=== PATIENT | male | born 1960 | race Caucasian/White ===

== ENCOUNTER → 2020-06-26 | Outpatient (CLI) | payer MEDICAID, OTHER ==
--- NOTE | 2020-06-26 12:29 | Diagnostic Imaging Report ---
INDICATION: Neck pain. TIME OF EXAM: 10:43 AM FINDINGS: 3 views of the cervical spine were obtained. Curvature and alignment is normal. There are significant degenerative disc disease C6-C7 level with disc space narrowing and marginal spurring. Odontoid is intact. No fractures are seen. Prevertebral tissues are normal. IMPRESSION: C6-C7 degenerative disc disease. No other significant abnormality is detected. Dictated by: Dictated on workstation # [id number]
== END ==
LOC: RAD FS 10:37
PROVIDERS: ATTEND Nurse Practitioner Family
DX: M50.323 Other cervical disc degeneration at C6-C7 level (principal)
CPT/HCPCS: 72040

== ENCOUNTER 2021-10-25 14:26 | Emergency (ER) | payer OTHER ==
[~2021-10-25] VITALS: Ht 167.7 cm; Wt 72.6 kg
[2021-10-25 14:30] VITALS: BP 140/69
[2021-10-25] MEDS ORDERED: TETANUS,DIPTH,PERTUSS P/F (BOOSTRIX) 0.5 ML VIAL IM ONE (14:45)
--- NOTE | 2021-10-25 14:51 | ED Fall/Injury ---
General Chief Complaint: Trauma-Non Activation Stated Complaint: FALL Nursing Triage Note: PT ARRIVED BY PRIVATE VEHICLE FROM [facility] WITH CHIEF COMPLAINT OF 10 FT FALL. 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 PT WAS ALERT, ORIENTED X 4 AND AMBULATORY. ONSET WAS THURSDAY AFTERNOON. PT LANDED ON CONCRETE AND STATED HIS LEFT SIDE, HIP, BELOW HEAD/NECK HURTS, TIALBONE, AND LEFT SHOULDER HURT. PT'S VITALS WERE DONE AND REPORT WAS GIVEN TO PROVIDER. Source: patient, family Exam Limitations: no limitations History of Present Illness Date Seen by Provider: Oct 25, 2021 Time Seen by Provider: 14:28 Initial Comments 61 yo male presenting with complaint of falling 10 feet from scaffolding to concrete on Monday 10/23. He denies losing consciousness. He has pain primari ly to the left side of his body. He has pain to cervical spine, left scapula, left chest, Thoracic spine, lumbar spine, left hip, tingling/burning pain in right foot since the fall. He refused to go be seen until today. He has no shortness of breath, nausea, vomiting, abdominal pain, blood in urine or stool, difficulty urinating or defecating. He has abrasions to right castaneda and thigh from the fall as well. His last tetanus booster was more than 5 years ago. He had a muscle relaxer Thursday night and took 2 tylenol last night but nothing today for pain. Occurred: other (Monday 10/23) Severity: moderate Injuries/Pain Location: head, neck, upper extremity (left shoulder), chest, back (T and L spine), pelvis (left hip pain), lower extremity (left hip pain, radicular pain/neuropathic pain right foot) Context: slipped Loss of Consciousness: no loss of consciousness Modifying Factors: Worse With Movement Associated Symptoms (Fall): No Abdominal Pain, No Chest Pain, No Confusion, No Dizziness, No Headache, No Lightheadedness, No Muscle Spasms, No Nausea/Vomiting; Neck Pain; No Ringing in Ears, No Seizures, No Shortness of Air, No Slurred Speech; Trouble Walking; No Vision Changes Allergies and Home Medications Allergies Coded Allergies: No Known Drug Allergies (Unverified , 10/25/21) Patient Home Medication List Home Medication List Reviewed: Yes Review of Systems Review of Systems Constitutional: No chills, No dizziness, No fever Eyes: Denies Blindness, Denies Blurred Vision, Denies Drainage, Denies Decreased Acuity, Denies Pain, Denies Photophobia, Denies Vision Changes Ears, Nose, Mouth, Throat: denies ear pain, denies ear discharge, denies nose pain, denies nose discharge, denies epistaxis, denies mouth pain Respiratory: No cough, No dyspnea on exertion, No short of breath, No stridor, No wheezing Cardiovascular: No chest pain Gastrointestinal: No nausea, No vomiting Genitourinary: No dysuria, No hematuria Musculoskeletal: see HPI Skin: No rash Psychiatric/Neurological: See HPI; Denies Headache Past Pwnrjjs-Fbgtrg-Omnmnk Hx Patient Social History Tobacco Use?: No Smoking Status: Never a Smoker Substance use?: No Alcohol Use?: No Pt feels they are or have been: No Physical Exam Vital Signs Vital Signs - First Documented 10/25/21 14:30 Temp 36.6 Pulse 65 Resp 16 B/P (MAP) 140/69 (92) Pulse Ox 97 O2 Delivery Room Air Capillary Refill : Less Than 3 Seconds Height, Weight, BMI Height: '" Weight: lbs. oz. kg; 25.00 BMI Method: General Appearance: WD/WN, no apparent distress HEENT: PERRL/EOMI, normal ENT inspection, TMs normal, pharynx normal Neck: full range of motion, supple, tender midline (middle of cervical spine tender to palpation) Cardiovascular: normal peripheral pulses, regular rate, rhythm Respiratory: chest non-tender, lungs clear, normal breath sounds, no respiratory distress, no accessory muscle use Gastrointestinal: normal bowel sounds, non tender, soft, no pulsatile mass Rectal: deferred Back: no CVA tenderness, vertebral tenderness (lower thoracic spine and lumbar spine) Extremities: normal range of motion, non-tender, no calf tenderness, normal capillary refill 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, no motor/sensory deficits, alert, normal mood/affect, oriented x 3 Skin: warm/dry, other (superficial abrasions to right castaneda and thigh) [place] Coma Score Best Eye Response: (4) Open Spontaneously Best Verbal Response: (5) Oriented Best Motor Response: (6) Obeys Commands Giuliana Total: 15 Progress/Results/Core Measures Results/Orders My Orders Orders - ANNA BOSE MD Ct Head/Cervical Spine Wo (10/25/21 14:42) Ct Chest/Abdomen/Pelvis Wo (10/25/21 14:42) Dipht,Pertuss(Acell),Tet Adult (Boostrix (10/25/21 14:45) Vital Signs/I&O 10/25/21 14:30 Temp 36.6 Pulse 65 Resp 16 B/P (MAP) 140/69 (92) Pulse Ox 97 O2 Delivery Room Air Blood Pressure Mean: 92 Progress Progress Note #1: Progress Note Obtain CT scan of head, cervical spine, chest/abdomen/pelvis and T and L spine. Update dTaP. pt refused pain medicine. Progress Note #2: Progress Note Although pt initially agreed to tetanus update when nurse went to administer it he refused. CT head and cervical spine show no intracranical process or cervical spine fracture but has findings for right maxillary sinus fracture. Progress Note #3: Progress Note CT scan of the chest, abdomen, pelvis did not show any acute fracture or malalignment. He does have some diverticulosis present. He had results reviewed with him and his significant other. He states he has had prior injury to the right cheek years ago but does not have any pain or tenderness there now. The findings they saw on the CT may be residual from his old injury rather than anything acute from this fall. Counseled on follow-up and return precautions. Advised if he continues to burning sensation and tingling in his right foot an MRI may be needed to look for a pinched nerve or nerve injury since the CT scan was not showing any acute fracture or spinal cord issue. In the meantime he can take ibuprofen to help with pain and inflammation. Ice for inflammation. Establish care with primary clinic for follow-up and continued concerns Diagnostic Imaging Diagonstic Imaging: CT Plain Films/CT/US/NM/MRI: c-spine, head Comments NAME: DANIELNEFTALY Jose L MED REC#: [id number] PT STATUS: REG ER : 1960 PHYSICIAN: ANNA BOSE MD ADMIT DATE: 10/25/21/ER FS Draft Date of Exam:10/25/21 CT HEAD/CERVICAL SPINE WO PROCEDURE: CT head and CT cervical spine without contrast. TECHNIQUE: Multiple contiguous axial images were obtained through the brain and cervical spine without the use of intravenous contrast. Sagittal and coronal reformations through the cervical spine were then performed. Auto Exposure Controls were utilized during the CT exam to meet ALARA standards for radiation dose reduction. INDICATION: Trauma, fall. COMPARISON: No prior studies are available for comparison. CT HEAD: FINDINGS: Ventricles and sulci are within normal limits. No sulcal effacement or midline shift is identified. No acute intra-axial or extra-axial hemorrhage is detected. Cisterns are patent. Visualized paranasal sinuses demonstrate some mucosal thickening of the right maxillary sinus. There is some cortical interruption in the anterior wall of the right maxillary sinus. Fracture cannot be entirely excluded. IMPRESSION: 1. No acute intracranial process is detected. 2. Findings suspicious for right anterior maxillary sinus wall fracture with some associated fluid or mucosal thickening in the right maxillary sinus. No other significant abnormality is seen. CT CERVICAL SPINE: FINDINGS: There is straightening of the normal cervical lordotic curvature. There is minimal anterolisthesis of C3 on C4. There is multilevel degenerative disc disease with variable disc space narrowing and marginal spurring. This is greatest at the C6-C7 level. There is multilevel facet arthropathy. Prevertebral tissues are normal. No fractures are seen. Odontoid appears intact. IMPRESSION: Cervical spondylosis. No acute bony abnormality is detected. Dictated on workstation # [id number] Dict: 10/25/21 1503 Trans: 10/25/21 1512 [id number] Interpreted by: MANN SANDOVAL MD Electronically signed by: Reviewed: Reviewed by Wy Diagonstic Imaging: CT Plain Films/CT/US/NM/MRI: chest, abdomen, pelvis Comments [facility] [place] [place] NAME: NEFTALY SANCHEZ [facility] REC#: [id number] PT STATUS: REG ER : 1960 PHYSICIAN: ANNA BOSE MD ADMIT DATE: 10/25/21/ER FS Signed Date of Exam:10/25/21 CT CHEST/ABDOMEN/PELVIS WO PROCEDURE: CT chest, abdomen, and pelvis without contrast. TECHNIQUE: Multiple contiguous axial images were obtained through the chest, abdomen, and pelvis without the use of intravenous contrast. Auto Exposure Controls were utilized during the CT exam to meet ALARA standards for radiation dose reduction. INDICATION: Trauma, fall from scaffolding 10' high. Patient has pain on the left side. FINDINGS: CT CHEST: No definite mediastinal hematoma is identified. No pericardial or pleural fluid is detected. No pulmonary contusions or evidence of pneumothorax is identified. No acute bony abnormalities detected. IMPRESSION: Unremarkable noncontrast CT of the chest. CT ABDOMEN AND PELVIS: Evaluation of the solid abdominal viscera is somewhat limited without intravenous contrast. No definite perihepatic or perisplenic free fluid is seen. No definite hemoperitoneum is identified. Gallbladder is unremarkable. The pancreas, adrenal glands and kidneys are unremarkable. Aorta is nonaneurysmal. No retroperitoneal hemorrhage is detected. Bowel loops are normal in caliber. There is diverticulosis of the descending and sigmoid colon but no evidence of acute diverticulitis. The bladder is unremarkable. There appears to be a urachal remnant present. Bony structures appear nonacute. IMPRESSION: 1. No evidence of abdominal or pelvic visceral injury. 2. Uncomplicated diverticulosis. Dictated by: Dictated on workstation # [id number] Dict: 10/25/21 1551 Trans: 10/25/21 1605 AS6 [id number] Interpreted by: MANN SANDOVAL MD Electronically signed by: MANN SANDOVAL MD 10/25/21 1605 Reviewed: Reviewed by Me Departure Impression Primary Impression: Contusion of left hip, initial encounter Additional Impressions: Lumbar back pain with radiculopathy affecting right lower extremity Maxillary fracture, right side, initial encounter for closed fracture Fall on and from scaffolding, initial encounter Cervical spine pain Disposition: HOME, SELF-CARE Condition: Stable Departure-Patient Inst. Decision time for Depature: 16:37 Referrals: NO,LOCAL PHYSICIAN (PCP) Primary Care Physician [facility] [phone] call to get established with a primary care provider and follow up for continued concerns/issues Patient Instructions: Neck Pain ED, Low Back Pain ED, Facial Fracture (DC), Radiculopathy Add. Discharge Instructions: There are no fractures seen in your spine or hips. If you have continued burning pain and numbness in the right foot then you should follow up with clinic as you may need MRI to look for pinched nerve or nerve injury. If your right cheek is giving you pain or swelling/bruising then you could follow up with clinic and may need to see ear, nose, and throat specialist if it worsens. Use Ibuprofen 600 mg every 8 hours as needed for pain and inflammation. All discharge instructions reviewed with patient and/or family. Voiced understanding. ANNA BOSE MD Oct 25, 2021 14:51
--- NOTE | 2021-10-25 15:12 | Diagnostic Imaging Report ---
PROCEDURE: CT head and CT cervical spine without contrast. TECHNIQUE: Multiple contiguous axial images were obtained through the brain and cervical spine without the use of intravenous contrast. Sagittal and coronal reformations through the cervical spine were then performed. Auto Exposure Controls were utilized during the CT exam to meet ALARA standards for radiation dose reduction. INDICATION: Trauma, fall. COMPARISON: No prior studies are available for comparison. CT HEAD: FINDINGS: Ventricles and sulci are within normal limits. No sulcal effacement or midline shift is identified. No acute intra-axial or extra-axial hemorrhage is detected. Cisterns are patent. Visualized paranasal sinuses demonstrate some mucosal thickening of the right maxillary sinus. There is some cortical interruption in the anterior wall of the right maxillary sinus. Fracture cannot be entirely excluded. IMPRESSION: 1. No acute intracranial process is detected. 2. Findings suspicious for right anterior maxillary sinus wall fracture with some associated fluid or mucosal thickening in the right maxillary sinus. No other significant abnormality is seen. CT CERVICAL SPINE: FINDINGS: There is straightening of the normal cervical lordotic curvature. There is minimal anterolisthesis of C3 on C4. There is multilevel degenerative disc disease with variable disc space narrowing and marginal spurring. This is greatest at the C6-C7 level. There is multilevel facet arthropathy. Prevertebral tissues are normal. No fractures are seen. Odontoid appears intact. IMPRESSION: Cervical spondylosis. No acute bony abnormality is detected. Dictated by: Dictated on workstation # [id number]
--- NOTE | 2021-10-25 16:04 | Diagnostic Imaging Report ---
PROCEDURE: CT chest, abdomen, and pelvis without contrast. TECHNIQUE: Multiple contiguous axial images were obtained through the chest, abdomen, and pelvis without the use of intravenous contrast. Auto Exposure Controls were utilized during the CT exam to meet ALARA standards for radiation dose reduction. INDICATION: Trauma, fall from scaffolding 10' high. Patient has pain on the left side. FINDINGS: CT CHEST: No definite mediastinal hematoma is identified. No pericardial or pleural fluid is detected. No pulmonary contusions or evidence of pneumothorax is identified. No acute bony abnormalities detected. IMPRESSION: Unremarkable noncontrast CT of the chest. CT ABDOMEN AND PELVIS: Evaluation of the solid abdominal viscera is somewhat limited without intravenous contrast. No definite perihepatic or perisplenic free fluid is seen. No definite hemoperitoneum is identified. Gallbladder is unremarkable. The pancreas, adrenal glands and kidneys are unremarkable. Aorta is nonaneurysmal. No retroperitoneal hemorrhage is detected. Bowel loops are normal in caliber. There is diverticulosis of the descending and sigmoid colon but no evidence of acute diverticulitis. The bladder is unremarkable. There appears to be a urachal remnant present. Bony structures appear nonacute. IMPRESSION: 1. No evidence of abdominal or pelvic visceral injury. 2. Uncomplicated diverticulosis. Dictated by: Dictated on workstation # [id number]
== END 2021-10-25 16:43 | disposition home or self-care (01) ==
LOC: EDUNIT# 14:26 → ER FS 14:28
DX: S02.40CA Maxillary fracture, right side, initial encounter for closed fracture (principal); S70.02XA Contusion of left hip, initial encounter; S80.811A Abrasion, right lower leg, initial encounter; S70.311A Abrasion, right thigh, initial encounter; M54.16 Radiculopathy, lumbar region; M54.2 Cervicalgia; W12.XXXA Fall on and from scaffolding, initial encounter
CPT/HCPCS: 70450; 71250; 72125; 74176

== ENCOUNTER 2022-04-01 08:55 | Emergency (ER) | payer OTHER ==
[~2022-04-01] VITALS: Ht 167.7 cm; Wt 72.6 kg
[2022-04-01 09:13] VITALS: BP 133/79
[2022-04-01] MEDS ORDERED: NS IV 1000 ML 1,000 ML IV STA (10:36)
--- NOTE | 2022-04-01 10:46 | ED Abdominal Pain ---
General Chief Complaint: Abdominal/GI Problems Stated Complaint: ABDOMINAL PAIN Nursing Triage Note: Pt presents with LLQ abdominal pain that started when he was moving heaving items in his garage. He reports feeling something "pop loose" Denies any other injury Source of Information: Patient Exam Limitations: No Limitations History of Present Illness Date Seen by Provider: Apr 01, 2022 Time Seen by Provider: 10:35 Initial Comments Patient here with complaint of left lower quadrant abdominal pain since Thursday that occurred after he was pushing a 400 pound compressor. States he felt a tearing and pop to the left lower quadrant. Denies dysuria or problems with bowel movements. Denies nausea vomiting or other pain or problems. Timing/Duration: 2-3 Days Severity/Quality: Moderate, Sharp, Other (Tearing) Location: LLQ Radiation: No Radiation Activities at Onset: Other (Moving equipment) Modifying Factors: Worsens With Movement, Worsens With Palpation; Improves With Resting Associated Symptoms: No Back Pain, No Chest Pain, No Fever/Chills, No Nausea/Vomiting, No Shortness of Air, No Weakness Allergies and Home Medications Allergies Coded Allergies: No Known Drug Allergies (Unverified , 10/25/21) Patient Home Medication List Home Medication List Reviewed: Yes Review of Systems Review of Systems Constitutional: No chills, No fever Respiratory: No Symptoms Reported Gastrointestinal: See HPI, Abdominal Pain; Denies Nausea, Denies Vomiting Genitourinary: No Symptoms Reported, See HPI Musculoskeletal: No back pain; muscle pain, muscle cramps Skin: No change in color; rash (Right groin) All Other Systems Reviewed Negative Unless Noted: Yes Past Jkvdwxg-Tkucoo-Gvbnwa Hx Patient Social History Tobacco Use?: No Substance use?: No Alcohol Use?: No Past Medical History Surgeries: No Cardiac: No Neurological: No Genitourinary: No Family Medical History Reviewed and Corrections made No Pertinent Family Hx Physical Exam Vital Signs Vital Signs - First Documented 04/01/22 09:13 Temp 35.7 Pulse 61 Resp 16 B/P (MAP) 133/79 (97) Capillary Refill : Less Than 3 Seconds Height/Weight/BMI Height: '" Weight: lbs. oz. kg; 25.00 BMI Method: General Appearance: WD/WN, mild distress (Left lower quadrant pain) Respiratory: lungs clear, normal breath sounds Cardiovascular: regular rate, rhythm, no murmur Gastrointestinal: normal bowel sounds, soft; No guarding, No rebound; tenderness (Left lower quadrant) Extremities: normal range of motion, no pedal edema Back: no CVA tenderness, no vertebral tenderness Neurologic/Psychiatric: alert, oriented x 3 Skin: warm/dry, rash (Fungal rash to the right groin) Progress/Results/Core Measures Results/Orders Lab Results Laboratory Tests Test 04/01/22 10:50 Range/Units White Blood Count 7.7 4.3-11.0 10^3/uL Red Blood Count 5.00 4.30-5.52 10^6/uL Hemoglobin 15.3 13.3-17.7 g/dL Hematocrit 46 40-54 % Mean Corpuscular Volume 91 80-99 fL Mean Corpuscular Hemoglobin 31 25-34 pg Mean Corpuscular Hemoglobin Concent 34 32-36 g/dL Red Cell Distribution Width 13.8 10.0-14.5 % Platelet Count 202 130-400 10^3/uL Mean Platelet Volume 9.7 9.0-12.2 fL Immature Granulocyte % (Auto) 0 % Neutrophils (%) (Auto) 72 42-75 % Lymphocytes (%) (Auto) 11 L 12-44 % Monocytes (%) (Auto) 6 0-12 % Eosinophils (%) (Auto) 10 0-10 % Basophils (%) (Auto) 1 0-10 % Neutrophils # (Auto) 5.6 1.8-7.8 10^3/uL Lymphocytes # (Auto) 0.8 L 1.0-4.0 10^3/uL Monocytes # (Auto) 0.5 0.0-1.0 10^3/uL Eosinophils # (Auto) 0.8 H 0.0-0.3 10^3/uL Basophils # (Auto) 0.1 0.0-0.1 10^3/uL Immature Granulocyte # (Auto) 0.0 0.0-0.1 10^3/uL Sodium Level 141 135-145 MMOL/L Potassium Level 3.9 3.6-5.0 MMOL/L Chloride Level 108 H 98-107 MMOL/L Carbon Dioxide Level 26 21-32 MMOL/L Anion Gap 7 5-14 MMOL/L Blood Urea Nitrogen 12 7-18 MG/DL Creatinine 0.88 0.60-1.30 MG/DL Estimat Glomerular Filtration Rate 97 BUN/Creatinine Ratio 14 Glucose Level 90 70-105 MG/DL Calcium Level 9.1 8.5-10.1 MG/DL My Orders Orders - TOMY MOSS MD Basic Metabolic Panel (04/01/22 10:36) Cbc With Automated Diff (04/01/22 10:36) Ns Iv 1000 Ml (Sodium Chloride 0.9%) (04/01/22 10:36) Ed Iv/Invasive Line Start (04/01/22 10:36) Ct Abdomen/Pelvis W (04/01/22 10:36) Iohexol Injection (Omnipaque 350 Mg/Ml 1 (04/01/22 11:00) Received Contrast (Hold Metformin- Contr (04/01/22 11:00) Ns (Ivpb) (Sodium Chloride 0.9% Ivpb Bag (04/01/22 11:00) Sodium Chloride Flush (Catheter Flush Sy (04/01/22 11:00) Medications Given in ED Current Medications Medications Dose Ordered Sig/Aniyah Route Start Time Stop Time Status Last Admin Dose Admin Iohexol 100 ml ONCE ONCE IV 04/01/22 11:00 04/01/22 11:01 DC 04/01/22 11:29 80 ML Sodium Chloride 10 ml NEEDED PRN IV 04/01/22 11:00 04/01/22 11:29 10 ML Sodium Chloride 100 ml ONCE ONCE IV 04/01/22 11:00 04/01/22 11:01 DC 04/01/22 11:29 80 ML Vital Signs/I&O 04/01/22 09:13 Temp 35.7 Pulse 61 Resp 16 B/P (MAP) 133/79 (97) Blood Pressure Mean: 97 Progress Progress Note : Progress Note Seen and evaluated. IV, labs and CT abdomen pelvis ordered. Normal saline 1 L bolus. There is concern about possible abdominal tearing so we will evaluate with CT scan. Patient agrees with plan. He has declined pain medicine current ly. Monitor patient. 1222: CT results noted and reviewed by me. I did review results with the patient. He does have diverticulitis and we will initiate outpatient antibiotic therapy. We did discuss at length the importance of of follow-up and primary care for him. He verbalized understanding. Discharged home with return precautions. Patient verbalized understanding of instructions and agreement with plan. Diagnostic Imaging Diagonstic Imaging: CT Plain Films/CT/US/NM/MRI: abdomen, pelvis Comments [facility] [place], [place] NAME: NEFTALY SANCHEZ [facility] REC#: [id number] PT STATUS: REG ER : 1960 PHYSICIAN: TOMY MOSS MD ADMIT DATE: 04/01/22/ER Draft Date of Exam:04/01/22 CT ABDOMEN/PELVIS W PROCEDURE: CT abdomen and pelvis with contrast. TECHNIQUE: Multiple contiguous axial images were obtained through the abdomen and pelvis after administration of intravenous contrast. Auto Exposure Controls were utilized during the CT exam to meet ALARA standards for radiation dose reduction. All CT scans use one or more of the following dose optimizing techniques: automated exposure control, MA and/or KvP adjustment based on patient size and exam type or iterative reconstruction. DATE: April 01, 2022. COMPARISON: CT chest, abdomen, and pelvis October 25, 2021. INDICATION: 61-year-old male, left lower quadrant abdominal pain after pushing heavy equipment. FINDINGS: There are predominantly linear opacities in the lung bases which appear unchanged since the comparison study most likely reflects scarring and/or atelectasis. The heart is not enlarged. There is no identified pericardial effusion. The liver is unremarkable in size and contour. There is no identified liver lesion. The main, right, left portal veins are patent. The gallbladder is unremarkable. There is no biliary ductal dilation. The main pancreatic duct is not abnormally dilated. Unremarkable appearance of the pancreatic parenchyma. The spleen is normal in size. The adrenal glands are unremarkable. There is a low-attenuation right renal lesion projecting in the right renal pelvis measuring 2.1 cm in size on axial image 70, most likely relating to a parapelvic cyst with internal attenuation of 5 Hounsfield units. The urinary collecting systems are not distended. There is no identified renal or ureteral stone. Urinary bladder is unremarkable. There is diverticulosis. There is prominent inflammatory stranding and wall thickening of the colon at the level of the junction of the left colon and proximal sigmoid colon in an area of diverticular disease most consistent with acute diverticulitis. There is no identified focal drainable fluid collection or abscess. There is no free intraperitoneal air. There is no free fluid in the abdomen or pelvis. The appendix is unremarkable. There is wall thickening of the stomach. There is mild generalized peritoneal strandiness. There are atherosclerotic calcifications. There is no identified abnormally enlarged lymph node in the abdomen or pelvis meeting CT size criteria for adenopathy. There are bilateral L5 pars interarticularis defects with 2 mm grade 1 anterolisthesis of L5 on S1. There are multilevel degenerative changes of the spine. IMPRESSION: CT ABDOMEN AND PELVIS. 1. Findings consistent with acute diverticulitis at the level of the junction of the left colon and proximal sigmoid colon without evidence of perforation or abscess. Dictated on workstation # [id number] Dict: 04/01/22 1142 Trans: 04/01/22 1157 CV [id number] Interpreted by: JIM GARLAND MD Electronically signed by: Reviewed: Reviewed by Me Departure Impression Primary Impression: Diverticulitis of intestine Qualified Codes: K57.32 - Diverticulitis of large intestine without perforation or abscess without bleeding Disposition: HOME, SELF-CARE Condition: Stable Departure-Patient Inst. Decision time for Depature: 12:28 Referrals: ROBERT MOREIRA,LOCAL PHYSICIAN (PCP) Primary Care Physician [facility] Patient Instructions: Diverticulitis (DC) Add. Discharge Instructions: All discharge instructions reviewed with patient and/or family. Voiced understanding. Take medications as directed. You may take Tylenol/acetaminophen 1000 mg every 6-8 hours as needed for pain. You may take ibuprofen 400 mg every 8 hours as needed for pain. Drink plenty of fluids and eat a light diet. It is very important that you seek follow-up for this. You may call Dr. Moreira for appointment for further evaluation including colonoscopy if indicated. It is also very important that you seek primary care physician for your yearly medical maintenance needs. Return for worse pain, fever, vomiting, weakness, breathing problems or other concerns as needed. Scripts Metronidazole (Metronidazole) 500 Mg Tablet 500 MG PO BID, #14 TAB 0 Refills Prov: TOMY MOSS MD 04/01/22 Ciprofloxacin HCl (Ciprofloxacin HCl) 500 Mg Tablet 500 MG PO BID, #14 TAB Prov: TOMY MOSS MD 04/01/22 TOMY MOSS MD Apr 01, 2022 10:46
[2022-04-01] MEDS ORDERED: IOHEXOL 350 MG/ML 100 ML (OMNIPAQUE 350) VIAL IV ONE (11:00)
[2022-04-01] MEDS ORDERED: CATHETER FLUSH 10 ML SYR IV PRN (11:00)
[2022-04-01] MEDS ORDERED: HOLD METFORMIN - RECEIVED CONTRAST 20 ML VIAL IV SCH (11:00)
[2022-04-01] MEDS ORDERED: NS 100 ML (IVPB) BAG IV ONE (11:00)
[2022-04-01 11:03] LABS: BASOPHILS # (AUTO) 0.1 10^3/uL (0.0-0.1); BASOPHILS % (AUTO) 1 % (0-10); EOSINOPHILS # (AUTO) 0.8 10^3/uL (0.0-0.3); EOSINOPHILS % (AUTO) 10 % (0-10); HEMATOCRIT 46 % (40-54); HEMOGLOBIN 15.3 g/dL (13.3-17.7); LYMPHOCYTES # (AUTO) 0.8 10^3/uL (1.0-4.0); LYMPHOCYTES % (AUTO) 11 % (12-44); MEAN CORPUSCULAR HEMOGLOBIN 31 pg (25-34); MEAN CORPUSCULAR HGB CONC 34 g/dL (32-36); MEAN CORPUSCULAR VOLUME 91 fL (80-99); MEAN PLATELET VOLUME 9.7 fL (9.0-12.2); MONOCYTES # (AUTO) 0.5 10^3/uL (0.0-1.0); MONOCYTES % (AUTO) 6 % (0-12); NEUTROPHILS # (AUTO) 5.6 10^3/uL (1.8-7.8); NEUTROPHILS % (AUTO) 72 % (42-75); PLATELET COUNT 202 10^3/uL (130-400); WHITE BLOOD COUNT 7.7 10^3/uL (4.3-11.0)
[2022-04-01 11:13] LABS: POTASSIUM 3.9 MMOL/L (3.6-5.0)
[2022-04-01 11:15] LABS: CALCIUM 9.1 MG/DL (8.5-10.1)
[2022-04-01 11:19] LABS: CREATININE SERUM 0.88 MG/DL (0.60-1.30)
--- NOTE | 2022-04-01 11:57 | Diagnostic Imaging Report ---
PROCEDURE: CT abdomen and pelvis with contrast. TECHNIQUE: Multiple contiguous axial images were obtained through the abdomen and pelvis after administration of intravenous contrast. Auto Exposure Controls were utilized during the CT exam to meet ALARA standards for radiation dose reduction. All CT scans use one or more of the following dose optimizing techniques: automated exposure control, MA and/or KvP adjustment based on patient size and exam type or iterative reconstruction. DATE: April 01, 2022. COMPARISON: CT chest, abdomen, and pelvis October 25, 2021. INDICATION: 61-year-old male, left lower quadrant abdominal pain after pushing heavy equipment. FINDINGS: There are predominantly linear opacities in the lung bases which appear unchanged since the comparison study most likely reflects scarring and/or atelectasis. The heart is not enlarged. There is no identified pericardial effusion. The liver is unremarkable in size and contour. There is no identified liver lesion. The main, right, left portal veins are patent. The gallbladder is unremarkable. There is no biliary ductal dilation. The main pancreatic duct is not abnormally dilated. Unremarkable appearance of the pancreatic parenchyma. The spleen is normal in size. The adrenal glands are unremarkable. There is a low-attenuation right renal lesion projecting in the right renal pelvis measuring 2.1 cm in size on axial image 70, most likely relating to a parapelvic cyst with internal attenuation of 5 Hounsfield units. The urinary collecting systems are not distended. There is no identified renal or ureteral stone. Urinary bladder is unremarkable. There is diverticulosis. There is prominent inflammatory stranding and wall thickening of the colon at the level of the junction of the left colon and proximal sigmoid colon in an area of diverticular disease most consistent with acute diverticulitis. There is no identified focal drainable fluid collection or abscess. There is no free intraperitoneal air. There is no free fluid in the abdomen or pelvis. The appendix is unremarkable. There is wall thickening of the stomach. There is mild generalized peritoneal strandiness. There are atherosclerotic calcifications. There is no identified abnormally enlarged lymph node in the abdomen or pelvis meeting CT size criteria for adenopathy. There are bilateral L5 pars interarticularis defects with 2 mm grade 1 anterolisthesis of L5 on S1. There are multilevel degenerative changes of the spine. IMPRESSION: CT ABDOMEN AND PELVIS. 1. Findings consistent with acute diverticulitis at the level of the junction of the left colon and proximal sigmoid colon without evidence of perforation or abscess. Dictated by: Dictated on workstation # [id number]
[2022-04-01] MEDS ORDERED: CIPR500T5 PO (12:30)
[2022-04-01] MEDS ORDERED: METR-145 PO (12:30)
== END 2022-04-01 12:42 | disposition home or self-care (01) ==
LOC: EDUNIT# 08:55 → ER 08:58
DX: K57.32 Diverticulitis of large intestine without perforation or abscess without bleeding (principal); Z28.310 Unvaccinated for COVID-19
CPT/HCPCS: 36415; 74177; 80048; 85025

== ENCOUNTER 2023-05-21 17:58 | Emergency (ER) | payer OTHER ==
[~2023-05-21] VITALS: Ht 170.1 cm; Wt 76.2 kg
[~2023-05-21 17:58] MED LIST: CIPR500T5 PO; METR-145 PO
--- NOTE | 2023-05-21 18:22 | ED Integumentary General ---
General Chief Complaint: Bite-Animal/Human/Insect Stated Complaint: INSECT BITE, RT KNEE Source: patient Exam Limitations: no limitations History of Present Illness Date Seen by Provider: May 21, 2023 Time Seen by Provider: 18:20 Initial Comments Patient is a 62-year-old male presents ED with a potential infection to right lower extremity. Patient states 2 days ago was noted a small area that was red. Patient woke up this morning red streaking up his right anterior leg. Pain does radiate across the right knee into the right thigh. Denies of any specific injury. Denies fever chills nausea, vomiting, diarrhea. Potential bug bite but patient does not know any specific etiology. He denies diabetes. No specific injury. Denies of any posterior calf pain, thigh pain, chest pain, shortness of breath. Denies applying topical ointment. Allergies and Home Medications Allergies Coded Allergies: No Known Drug Allergies (Unverified , 10/25/21) Patient Home Medication List Home Medication List Reviewed: Yes Cephalexin (Cephalexin) 500 Mg Tablet, 500 MG PO QID Prescribed by: CHRISTOPHER OSUNA on 05/21/23 185 Ciprofloxacin HCl (Ciprofloxacin HCl) 500 Mg Tablet, 500 MG PO BID Prescribed by: TOMY MOSS on 04/01/22 1230 Metronidazole (Metronidazole) 500 Mg Tablet, 500 MG PO BID Prescribed by: TOMY MOSS on 04/01/22 1230 Sulfamethoxazole/Trimethoprim (Bactrim Ds Tablet) 800 Mg-160 Mg Tablet, 1 EACH PO BID Prescribed by: CHRISTOPHER OSUNA on 05/21/23 185 Review of Systems Review of Systems Constitutional: No chills, No diaphoresis, No fever, No malaise, No weakness EENTM: No ear pain, No blurred vision, No double vision Respiratory: No cough, No dyspnea on exertion Cardiovascular: No chest pain, No edema Gastrointestinal: No abdominal pain, No diarrhea, No nausea, No vomiting Genitourinary: No decreased output, No discharge Musculoskeletal: No back pain, No joint pain; muscle pain; No muscle stiffness Skin: change in color All Other Systems Reviewed Negative Unless Noted: Yes Past Hcwiuzs-Srhnjq-Xfemjn Hx Patient Social History Tobacco Use?: No Substance use?: No Alcohol Use?: No Past Medical History Surgeries: No Cardiac: No Neurological: No Genitourinary: No Family Medical History No Pertinent Family Hx Physical Exam Vital Signs Vital Signs - First Documented 05/21/23 18:14 Temp 36.8 Pulse 71 B/P (MAP) 136/91 (106) Pulse Ox 98 O2 Delivery Room Air Capillary Refill : General Appearance: WD/WN, no apparent distress HEENT: PERRL/EOMI, normal ENT inspection, TMs normal, pharynx normal Neck: non-tender, full range of motion, supple Cardiovascular: regular rate, rhythm, no edema, no gallop, no JVD Respiratory: chest non-tender, lungs clear, normal breath sounds, no respiratory distress, no accessory muscle use Gastrointestinal: normal bowel sounds, non tender, soft, no organomegaly Back: normal inspection, no CVA tenderness, no vertebral tenderness Extremities: other (Normal active range of motion the right knee. No ci rcumferential swelling or redness of the right knee. Anterior erythema. 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 Mild induration without fluctuant mass. Erythema streaking to the anterior knee, anterior thigh.) Progress/Results/Core Measures Results/Orders Lab Results Laboratory Tests Test 05/21/23 18:23 Range/Units White Blood Count 7.7 4.3-11.0 10^3/uL Red Blood Count 4.77 4.30-5.52 10^6/uL Hemoglobin 14.7 13.3-17.7 g/dL Hematocrit 43 40-54 % Mean Corpuscular Volume 90 80-99 fL Mean Corpuscular Hemoglobin 31 25-34 pg Mean Corpuscular Hemoglobin Concent 34 32-36 g/dL Red Cell Distribution Width 13.7 10.0-14.5 % Platelet Count 219 130-400 10^3/uL Mean Platelet Volume 9.5 9.0-12.2 fL Immature Granulocyte % (Auto) 0 % Neutrophils (%) (Auto) 64 42-75 % Lymphocytes (%) (Auto) 18 12-44 % Monocytes (%) (Auto) 9 0-12 % Eosinophils (%) (Auto) 8 0-10 % Basophils (%) (Auto) 1 0-10 % Neutrophils # (Auto) 4.9 1.8-7.8 10^3/uL Lymphocytes # (Auto) 1.4 1.0-4.0 10^3/uL Monocytes # (Auto) 0.7 0.0-1.0 10^3/uL Eosinophils # (Auto) 0.6 H 0.0-0.3 10^3/uL Basophils # (Auto) 0.1 0.0-0.1 10^3/uL Immature Granulocyte # (Auto) 0.0 0.0-0.1 10^3/uL Sodium Level 139 135-145 MMOL/L Potassium Level 3.6 3.6-5.0 MMOL/L Chloride Level 105 98-107 MMOL/L Carbon Dioxide Level 26 21-32 MMOL/L Anion Gap 8 5-14 MMOL/L Blood Urea Nitrogen 12 7-18 MG/DL Creatinine 1.04 0.60-1.30 MG/DL Estimat Glomerular Filtration Rate 80 BUN/Creatinine Ratio 12 Glucose Level 78 70-105 MG/DL Lactic Acid Level 1.19 0.50-2.00 MMOL/L Calcium Level 9.4 8.5-10.1 MG/DL Corrected Calcium 9.3 8.5-10.1 MG/DL Total Bilirubin 0.5 0.1-1.0 MG/DL Aspartate Amino Transf (AST/SGOT) 22 5-34 U/L Alanine Aminotransferase (ALT/SGPT) 18 0-55 U/L Alkaline Phosphatase 79 40-136 U/L C-Reactive Protein High Sensitivity 2.19 H 0.00-0.50 MG/DL Total Protein 7.1 6.4-8.2 GM/DL Albumin 4.1 3.2-4.5 GM/DL My Orders Orders - ANTONIETTA SHEFFIELD Cbc And Automated Diff (05/21/23 18:18) Comprehensive Metabolic Panel (05/21/23 18:18) Hs C Reactive Protein (05/21/23 18:18) Blood Culture (05/21/23 18:18) Lactic Acid Analyzer (05/21/23 18:18) Vancomycin Injection (Vancomycin Injecti (05/21/23 18:30) Piperacillin/Tazobactam (Piperacillin/Ta (05/21/23 18:30) Blood Culture (05/21/23 18:29) Medications Given in ED Current Medications Medications Dose Ordered Sig/Aniyah Route Start Time Stop Time Status Last Admin Dose Admin Piperacillin Sod/ Tazobactam Sod 4.5 gm/Sodium Chloride 100 ml @ 200 mls/hr ONCE ONCE IV 05/21/23 18:30 05/21/23 18:59 DC 05/21/23 18:47 200 MLS/HR Vancomycin HCl 1000 mg/Sodium Chloride 250 ml @ 250 mls/hr ONCE ONCE IV 05/21/23 18:30 05/21/23 19:29 DC 05/21/23 18:47 250 MLS/HR Vital Signs/I&O 05/21/23 05/21/23 18:14 20:21 Temp 36.8 Pulse 71 60 B/P (MAP) 136/91 (106) 115/69 Pulse Ox 98 97 O2 Delivery Room Air Room Air Blood Pressure Mean: 106 Departure Communication (PCP) Reviewed previous ER visits, H&P, lab testing. Differential diagnosis cellulitis, abscess. On exam patient has a indurated quarter sized area to the right lateral anterior calf. Erythema streaking up over the anterior knee into the lower thigh. Normal active range of motion of the right knee. No evidence suggesting septic arthritis. Applied ultrasound overlying the area no fluctuant mass. He is afebrile not tachycardic. Did obtain generalized lab work blood cultures and lactic acid. Patient received vancomycin and Zosyn. He denies history of diabetes. There is no area of inoculation. Potential bug bite versus folliculitis versus early abscess. At this time patient appears in no acute distress. CBC, CMP was grossly unremarkable. CRP of 2. Does not appear toxic or septic. At this time will discharge with Keflex and Bactrim to cover staph, strep and MRSA. Area was marked. If increased redness or swelling or pain to return back to ED. Follow your PCP in 2 to 3 days for reevaluation. Return if symptoms worsen. Impression Primary Impression: Cellulitis Disposition: 01 HOME, SELF-CARE Condition: Stable Departure-Patient Inst. Decision time for Depature: 18:53 Referrals: HELEN ANDERSON APRN (PCP/Family) Primary Care Physician Patient Instructions: Cellulitis (Skin Infection), Adult ED Scripts Sulfamethoxazole/Trimethoprim (Bactrim Ds Tablet) 800 Mg-160 Mg Tablet 1 EACH PO BID for 7 Days, #14 TAB Prov: ANTONIETTA SHEFFIELD 05/21/23 Cephalexin (Cephalexin) 500 Mg Tablet 500 MG PO QID for 7 Days, #28 TAB Prov: ANTONIETTA SHEFFIELD 05/21/23 ANTONIETTA SHEFFIELD May 21, 2023 18:22
[2023-05-21] MEDS ORDERED: PIPERACILLIN/Tazobactam 4.5 GM in NS (IVPB) 100 ML 100 ML IV ONE (18:30)
[2023-05-21] MEDS ORDERED: VANCOMYCIN INJECTION 1,000 MG in NS (IVPB) 250 ML 250 ML IV ONE (18:30)
[2023-05-21 18:34] LABS: BASOPHILS # (AUTO) 0.1 10^3/uL (0.0-0.1); BASOPHILS % (AUTO) 1 % (0-10); EOSINOPHILS # (AUTO) 0.6 10^3/uL (0.0-0.3); EOSINOPHILS % (AUTO) 8 % (0-10); HEMATOCRIT 43 % (40-54); HEMOGLOBIN 14.7 g/dL (13.3-17.7); LYMPHOCYTES # (AUTO) 1.4 10^3/uL (1.0-4.0); LYMPHOCYTES % (AUTO) 18 % (12-44); MEAN CORPUSCULAR HEMOGLOBIN 31 pg (25-34); MEAN CORPUSCULAR HGB CONC 34 g/dL (32-36); MEAN CORPUSCULAR VOLUME 90 fL (80-99); MEAN PLATELET VOLUME 9.5 fL (9.0-12.2); MONOCYTES # (AUTO) 0.7 10^3/uL (0.0-1.0); MONOCYTES % (AUTO) 9 % (0-12); NEUTROPHILS # (AUTO) 4.9 10^3/uL (1.8-7.8); NEUTROPHILS % (AUTO) 64 % (42-75); PLATELET COUNT 219 10^3/uL (130-400); WHITE BLOOD COUNT 7.7 10^3/uL (4.3-11.0)
[2023-05-21 18:44] LABS: ALBUMIN 4.1 GM/DL (3.2-4.5); POTASSIUM 3.6 MMOL/L (3.6-5.0)
[2023-05-21 18:45] LABS: CALCIUM 9.4 MG/DL (8.5-10.1)
[2023-05-21 18:47] LABS: TOTAL PROTEIN 7.1 GM/DL (6.4-8.2)
[2023-05-21 18:48] LABS: BILIRUBIN,TOTAL 0.5 MG/DL (0.1-1.0)
[2023-05-21 18:50] LABS: CREATININE SERUM 1.04 MG/DL (0.60-1.30)
[2023-05-21] MEDS ORDERED: SULF-221 PO (18:54)
[2023-05-21] MEDS ORDERED: CEPH500T PO (18:54)
[2023-05-21 20:21] VITALS: BP 115/69
== END 2023-05-21 20:27 | disposition home or self-care (01) ==
LOC: EDUNIT# 17:58 → ER 18:02
DX: L03.115 Cellulitis of right lower limb (principal)
CPT/HCPCS: 36415; 80053; 83605; 85025; 86141; 87040; 96365; 96366; 96367; 96368

== ENCOUNTER 2023-06-22 16:37 | Emergency (ER) | payer OTHER ==
[~2023-06-22 16:37] MED LIST changes: +CEPH500T PO; +SULF-221 PO
[2023-06-22] MEDS ORDERED: ONDANSETRON INJECTION 4 MG/2 ML (SDV) IVP ONE (17:00)
[2023-06-22] MEDS ORDERED: NS IV 1000 ML 1,000 ML IV ONE (17:00)
[2023-06-22] MEDS ORDERED: fentaNYL INJECTION 100 MCG/2 ML VIAL IVP ONE (17:00)
[2023-06-22 17:06] LABS: BASOPHILS % (AUTO) 0 % (0-10); EOSINOPHILS # (AUTO) 0.1 10^3/uL (0.0-0.3); EOSINOPHILS % (AUTO) 2 % (0-10); HEMATOCRIT 44 % (40-54); HEMOGLOBIN 14.5 g/dL (13.3-17.7); LYMPHOCYTES # (AUTO) 0.9 10^3/uL (1.0-4.0); LYMPHOCYTES % (AUTO) 12 % (12-44); MEAN CORPUSCULAR HEMOGLOBIN 30 pg (25-34); MEAN CORPUSCULAR HGB CONC 33 g/dL (32-36); MEAN CORPUSCULAR VOLUME 91 fL (80-99); MEAN PLATELET VOLUME 9.6 fL (9.0-12.2); MONOCYTES # (AUTO) 0.7 10^3/uL (0.0-1.0); MONOCYTES % (AUTO) 9 % (0-12); NEUTROPHILS # (AUTO) 6.3 10^3/uL (1.8-7.8); NEUTROPHILS % (AUTO) 78 % (42-75); PLATELET COUNT 275 10^3/uL (130-400); WHITE BLOOD COUNT 8.1 10^3/uL (4.3-11.0)
[2023-06-22 17:08] LABS: ALBUMIN 3.5 GM/DL (3.2-4.5)
[2023-06-22 17:09] LABS: POTASSIUM 3.9 MMOL/L (3.6-5.0)
[2023-06-22 17:10] LABS: CALCIUM 9.8 MG/DL (8.5-10.1)
[2023-06-22 17:11] LABS: TOTAL PROTEIN 7.3 GM/DL (6.4-8.2)
[2023-06-22 17:13] LABS: BILIRUBIN,TOTAL 0.9 MG/DL (0.1-1.0)
[2023-06-22 17:15] LABS: CREATININE SERUM 1.68 MG/DL (0.60-1.30)
--- NOTE | 2023-06-22 17:21 | Diagnostic Imaging Report ---
PROCEDURE: CT abdomen and pelvis without contrast. TECHNIQUE: Multiple contiguous axial images were obtained through the abdomen and pelvis without the use of intravenous contrast. Auto Exposure Controls were utilized during the CT exam to meet ALARA standards for radiation dose reduction. INDICATION: Left lower quadrant abdominal pain. There is calcific coronary atherosclerosis. There is some patchy alveolar infiltrate at the right lung base. There is a cluster of small soft tissue density nodules at the left posterior lung base. These were present on prior exam dated 04/01/2022. Liver appears normal. Gallbladder is unremarkable. Pancreas is normal. Spleen is not enlarged. Adrenals are normal. Right kidney is normal. There is hydronephrosis of left kidney with left perinephric edema and a dilated left ureter. There is a 3 mm calculus at left ureterovesical junction causing obstruction. There is some diverticulosis of the colon without evidence of diverticulitis. Small bowel is not dilated. Appendix is normal. Urinary bladder and prostate are unremarkable. IMPRESSION: Obstructing calculus left distal ureter at the ureterovesical junction causing left hydronephrosis. There is uncomplicated diverticulosis of the colon. There are some parenchyma changes in the lungs that appear similar to prior exam from 04/01/2022. Dictated by: Dictated on workstation # [id number]
--- NOTE | 2023-06-22 17:24 | Diagnostic Imaging Report ---
EXAMINATION: Chest 2 view HISTORY: Pneumonia and fever. COMPARISON: None available. FINDINGS: Heart size and pulmonary vasculature are normal. There is no focal consolidation, pleural effusion, or pneumothorax. Degenerative changes of the thoracic spine. Osseous structures are otherwise intact. IMPRESSION: 1. No acute radiographic abnormality in the chest. Dictated by: Dictated on workstation # [id number]
[2023-06-22] MEDS ORDERED: cefTRIAXone IV/IM 1,000 MG in NS (IVPB) 50 ML 50 ML IV STA (17:32)
--- NOTE | 2023-06-22 17:38 | ED Abdominal Pain ---
General Chief Complaint: Respiratory Problems Stated Complaint: BACK PAIN, PNEUMONIA, LOWER ABD PAIN Nursing Triage Note: PT AMB TO RM 5 PT CO OF ABD PAIN, PT STATES HAS HAD FEVER, POOR APPETITE. AND L LOWER ABD PAIN. PT STATES HAD TESTED + FOR COVID ON 06/16/23. Source of Information: Patient, Old Records, Spouse Exam Limitations: No Limitations History of Present Illness Date Seen by Provider: Jun 22, 2023 Time Seen by Provider: 17:33 Initial Comments This is a 63-year-old male who presented to the ER with complaints of left lower abdominal pain that radiates into his back, fever, decreased appetite. States that he was at [facility] on June 16 and tested positive for COVID and Myco. Was given doxycycline for 7 days. Spouse states that he is not improving and now having increased pain. He does have history of diverticulitis. No diarrhea does have issues with constipation and has not had a good bowel meant in several days. Allergies and Home Medications Allergies Coded Allergies: No Known Drug Allergies (Unverified , 10/25/21) Patient Home Medication List Home Medication List Reviewed: Yes Cephalexin (Cephalexin) 500 Mg Tablet, 500 MG PO QID Prescribed by: CHRISTOPHER OSUNA on 05/21/231853 Ciprofloxacin HCl (Ciprofloxacin HCl) 500 Mg Tablet, 500 MG PO BID Prescribed by: TOMY MOSS on 04/01/22 1230 Ciprofloxacin HCl (Ciprofloxacin HCl) 500 Mg Tablet, 500 MG PO BID Prescribed by: SOLANGE CARTER on 06/22/23 175 Hydrocodone/Acetaminophen (Hydrocodone-Acetamin 5-325 mg) 5 Mg-325 Mg Tablet, 1 TAB PO Q6H PRN for PAIN-MODERATE (5-7) Prescribed by: SOLANGE CARTER on 06/22/23 175 Metronidazole (Metronidazole) 500 Mg Tablet, 500 MG PO BID Prescribed by: TOMY MOSS on 04/01/22 1230 Sulfamethoxazole/Trimethoprim (Bactrim Ds Tablet) 800 Mg-160 Mg Tablet, 1 EACH PO BID Prescribed by: CHRISTOPHER OSUNA on 05/21/231853 Tamsulosin HCl (Flomax) 0.4 Mg Cap, 0.4 MG PO DAILY Prescribed by: SOLANGE CARTER on 06/22/231753 Review of Systems Review of Systems Constitutional: see HPI Gastrointestinal: See HPI Past Ovvnwgk-Lwlofq-Mcsvdj Hx Patient Social History Tobacco Use?: No Substance use?: No Alcohol Use?: No Pt feels they are or have been: No Past Medical History Surgery/Hospitalization HX: HX DIVERTICULITIS Surgeries: No Cardiac: No Neurological: No Genitourinary: No Family Medical History No Pertinent Family Hx Physical Exam Vital Signs Vital Signs - First Documented 06/22/23 16:45 Temp 38.0 Pulse 73 Resp 18 B/P (MAP) 145/86 (105) Pulse Ox 99 Capillary Refill : Less Than 3 Seconds Height/Weight/BMI Height: '" Weight: lbs. oz. kg; BMI Method: General Appearance: WD/WN, no apparent distress HEENT: normal ENT inspection, pharynx normal Neck: full range of motion, normal inspection Respiratory: lungs clear, normal breath sounds, no respiratory distress, no accessory muscle use Cardiovascular: regular rate, rhythm, no edema, no gallop Gastrointestinal: normal bowel sounds, soft, tenderness (LLQ) Extremities: normal range of motion, normal inspection Back: CVA tenderness (L) Neurologic/Psychiatric: no motor/sensory deficits, alert, normal mood/affect, oriented x 3 Skin: normal color, warm/dry Progress/Results/Core Measures Results/Orders Lab Results Laboratory Tests Test 06/22/23 16:48 06/22/23 17:33 Range/Units White Blood Count 8.1 4.3-11.0 10^3/uL Red Blood Count 4.78 4.30-5.52 10^6/uL Hemoglobin 14.5 13.3-17.7 g/dL Hematocrit 44 40-54 % Mean Corpuscular Volume 91 80-99 fL Mean Corpuscular Hemoglobin 30 25-34 pg Mean Corpuscular Hemoglobin Concent 33 32-36 g/dL Red Cell Distribution Width 13.2 10.0-14.5 % Platelet Count 275 130-400 10^3/uL Mean Platelet Volume 9.6 9.0-12.2 fL Immature Granulocyte % (Auto) 1 % Neutrophils (%) (Auto) 78 H 42-75 % Lymphocytes (%) (Auto) 12 12-44 % Monocytes (%) (Auto) 9 0-12 % Eosinophils (%) (Auto) 2 0-10 % Basophils (%) (Auto) 0 0-10 % Neutrophils # (Auto) 6.3 1.8-7.8 10^3/uL Lymphocytes # (Auto) 0.9 L 1.0-4.0 10^3/uL Monocytes # (Auto) 0.7 0.0-1.0 10^3/uL Eosinophils # (Auto) 0.1 0.0-0.3 10^3/uL Basophils # (Auto) 0.0 0.0-0.1 10^3/uL Immature Granulocyte # (Auto) 0.0 0.0-0.1 10^3/uL Sodium Level 138 135-145 MMOL/L Potassium Level 3.9 3.6-5.0 MMOL/L Chloride Level 102 98-107 MMOL/L Carbon Dioxide Level 25 21-32 MMOL/L Anion Gap 11 5-14 MMOL/L Blood Urea Nitrogen 18 7-18 MG/DL Creatinine 1.68 H 0.60-1.30 MG/DL Estimat Glomerular Filtration Rate 45 BUN/Creatinine Ratio 11 Glucose Level 107 H 70-105 MG/DL Calcium Level 9.8 8.5-10.1 MG/DL Corrected Calcium 10.2 H 8.5-10.1 MG/DL Total Bilirubin 0.9 0.1-1.0 MG/DL Aspartate Amino Transf (AST/SGOT) 24 5-34 U/L Alanine Aminotransferase (ALT/SGPT) 26 0-55 U/L Alkaline Phosphatase 82 40-136 U/L C-Reactive Protein High Sensitivity 26.42 H 0.00-0.50 MG/DL Total Protein 7.3 6.4-8.2 GM/DL Albumin 3.5 3.2-4.5 GM/DL Lipase 18 8-78 U/L Urine Color YELLOW Urine Clarity CLEAR Urine pH 5.5 5-9 Urine Specific [place] 1.020 1.016-1.022 Urine Protein 1+ H NEGATIVE Urine Glucose (UA) NEGATIVE NEGATIVE Urine Ketones 1+ H NEGATIVE Urine Nitrite NEGATIVE NEGATIVE Urine Bilirubin 1+ H NEGATIVE Urine Urobilinogen 4.0 < = 1.0 MG/DL Urine Leukocyte Esterase NEGATIVE NEGATIVE Urine RBC (Auto) TRACE H NEGATIVE Urine RBC 0-2 /HPF Urine WBC NONE /HPF Urine Squamous Epithelial Cells 0-2 /HPF Urine Crystals NONE /LPF Urine Bacteria FEW H /HPF Urine Casts PRESENT /LPF Urine Hyaline Casts 0-2 H /LPF Urine Mucus NEGATIVE /LPF Urine Culture Indicated YES My Orders Orders - SOLANGE CARTER APRN Cbc And Automated Diff (06/22/23 16:53) Comprehensive Metabolic Panel (06/22/23 16:53) Hs C Reactive Protein (06/22/23 16:53) Ua Culture If Indicated (06/22/23 16:53) Ed Iv/Invasive Line Start (06/22/23 16:53) Ns Iv 1000 Ml (Ns Iv 1000 Ml) (06/22/23 17:00) Chest Pa/Lat (2 View) (06/22/23 16:53) Fentanyl Injection (Fentanyl Injection (06/22/23 17:00) Ondansetron Injection (Ondansetron Inj (06/22/23 17:00) Ct Abdomen/Pelvis Wo (06/22/23 16:53) Lipase (06/22/23 16:53) Ceftriaxone Iv/Im (Ceftriaxone Iv/Im) (06/22/23 17:32) Urine Culture (06/22/23 17:33) Medications Given in ED Current Medications Medications Dose Ordered Sig/Aniyah Route Start Time Stop Time Status Last Admin Dose Admin Fentanyl Citrate 50 mcg ONCE ONCE IVP 06/22/23 17:00 06/22/23 17:01 DC 06/22/23 17:05 50 MCG Ondansetron HCl 4 mg ONCE ONCE IVP 06/22/23 17:00 06/22/23 17:01 DC 06/22/23 17:05 4 MG Sodium Chloride 1,000 ml @ 999 mls/hr ONCE ONCE IV 06/22/23 17:00 06/22/23 18:00 DC 06/22/23 17:05 999 MLS/HR Vital Signs/I&O 06/22/23 16:45 Temp 38.0 Pulse 73 Resp 18 B/P (MAP) 145/86 (105) Pulse Ox 99 Blood Pressure Mean: 105 Progress Progress Note : Progress Note Patient examined, stable. Orders placed for CBC, CMP, CRP, UA, chest x-ray, CT abdomen pelvis without contrast. Records from [facility] reviewed and he was positive for COVID and positive for Myco at that time of visit. His creatinine was 1.9 with a GFR of 39. Has no known history of renal disease. Spouse concerned with pneumonia and abdominal pain. CBC is unremarkable, WBC is 8.1, hemoglobin 14.5, hematocrit 44, platelet count 275. Chemistry normal electrolytes, creatinine 1.6, GFR 45, CRP is 26.4. UA positive for few bacteria, trace RBCs, 1+ bilirubin, 1+ ketones, no glucose, 1+ protein. CT scan shows 3 mm ureteral stone with significant hydronephrosis and perinephric fat stranding. Given given 1 g of Rocephin in ER, started on Flomax, number given to follow-up with Dr. Celestin, they are to schedule follow-up appointment tomorrow. Hydrocodone as needed pain if pain uncontrolled or unable to urinate to ER. Plan discussed with spouse and patient and they are agreeable with plan. Diagnostic Imaging Comments [facility]. [place], [place] NAME: NEFTALY SANCHEZ [facility] REC#: [id number] PT STATUS: REG ER : 1960 PHYSICIAN: SOLANGE CARTER CLINICAL ANALYST ADMIT DATE: 06/22/23/ER Draft Date of Exam:06/22/23 CT ABDOMEN/PELVIS WO PROCEDURE: CT abdomen and pelvis without contrast. TECHNIQUE: Multiple contiguous axial images were obtained through the abdomen and pelvis without the use of intravenous contrast. Auto Exposure Controls were utilized during the CT exam to meet ALARA standards for radiation dose reduction. INDICATION: Left lower quadrant abdominal pain. There is calcific coronary atherosclerosis. There is some patchy alveolar infiltrate at the right lung base. There is a cluster of small soft tissue density nodules at the left posterior lung base. These were present on prior exam dated 04/01/2022. Liver appears normal. Gallbladder is unremarkable. Pancreas is normal. Spleen is not enlarged. Adrenals are normal. Right kidney is normal. There is hydronephrosis of left kidney with left perinephric edema and a dilated left ureter. There is a 3 mm calculus at left ureterovesical junction causing obstruction. There is some diverticulosis of the colon without evidence of diverticulitis. Small bowel is not dilated. Appendix is normal. Urinary bladder and prostate are unremarkable. IMPRESSION: Obstructing calculus left distal ureter at the ureterovesical junction causing left hydronephrosis. There is uncomplicated diverticulosis of the colon. There are some parenchyma changes in the lungs that appear similar to prior exam from 04/01/2022. Dictated on workstation # [id number] Dict: 06/22/231715 Trans: 06/22/231720 CV [id number] Interpreted by: TOMY ZAMBRANO MD Electronically signed by: Nicko SOLIMAN [facility]. [place], [place] NAME: NEFTALY SANCHEZ [facility] REC#: [id number] PT STATUS: REG ER : 1960 PHYSICIAN: SOLANGE CARTER APRN ADMIT DATE: 06/22/23/ER Signed Date of Exam:06/22/23 CHEST PA/LAT (2 VIEW) EXAMINATION: Chest 2 view HISTORY: Pneumonia and fever. COMPARISON: None available. FINDINGS: Heart size and pulmonary vasculature are normal. There is no focal consolidation, pleural effusion, or pneumothorax. Degenerative changes of the thoracic spine. Osseous structures are otherwise intact. IMPRESSION: 1. No acute radiographic abnormality in the chest. Dictated by: Dictated on workstation # [id number] Dict: 06/22/231721 Trans: 06/22/231726 CV [id number] Interpreted by: LILY ZAMBRANO DO Electronically signed by: LILY ZAMBRANO DO 06/22/231726 Departure Impression Primary Impression: Ureteral stone with hydronephrosis Disposition: 01 HOME, SELF-CARE Condition: Improved Departure-Patient Inst. Decision time for Depature: 17:50 Referrals: HELEN ANDERSON APRN (PCP/Family) Primary Care Physician Patient Instructions: Hydronephrosis, Adult (DC) Add. Discharge Instructions: Plan: 1. F/U with Dr. Celestin. Please call office to schedule follow up for left kidney stone. 2. Take antibiotics as directed and complete full course. 3. Drink plenty of fluids to help pass stone. Strain all of your urine to monitor for passing of stone. 4. Take Hydrocodone 5/325mg by mouth every 6 hours as needed for pain. 5. Take Flomax at dinner time. 6. Return for any new, concerning, or worsening symptoms. All discharge instructions reviewed with patient and/or family. Voiced understanding. Scripts Hydrocodone/Acetaminophen (Hydrocodone-Acetamin 5-325 mg) 5 Mg-325 Mg Tablet 1 TAB PO Q6H PRN for PAIN-MODERATE (5-7), #20 TAB 0 Refills Prov: SOLANGE CARTER CLINICAL ANALYST 06/22/23 Tamsulosin HCl (Flomax) 0.4 Mg Cap 0.4 MG PO DAILY for 14 Days, #14 CAP 0 Refills Prov: SOLANGE CARTER APRN 06/22/23 Ciprofloxacin HCl (Ciprofloxacin HCl) 500 Mg Tablet 500 MG PO BID for 7 Days, #14 TAB 0 Refills Prov: SOLANGE CARTER CLINICAL ANALYST 06/22/23 Copy Copies To 1: Kyrie CELESTIN MD, STORMY D CLINICAL ANALYST Jun 22, 2023 17:38
[2023-06-22] MEDS ORDERED: TMSL.4C PO (17:54)
[2023-06-22] MEDS ORDERED: ACHD5005 PO (17:54)
[2023-06-22] MEDS ORDERED: CIPR500T5 PO (17:54)
[2023-06-22 18:17] LABS: CLARITY,URINE CLEAR; COLOR,URINE YELLOW; PH,URINE 5.5 (5-9)
[2023-06-22 18:18] LABS: BACTERIA,URINE FEW /HPF; BILIRUBIN,URINE 1+ (NEGATIVE); GLUCOSE, URINE (UA) NEGATIVE (NEGATIVE); HYALINE CASTS, URINE 0-2 /LPF; KETONES,URINE 1+ (NEGATIVE); LEUKOCYTE ESTERASE ,URINE NEGATIVE (NEGATIVE); NITRITE,URINE NEGATIVE (NEGATIVE); PROTEIN,URINE 1+ (NEGATIVE); RBC,URINE 0-2 /HPF; SQUAMOUS EPITHELIAL CELL,UR 0-2 /HPF
[2023-06-22 18:30] VITALS: BP 145/86
== END 2023-06-22 18:32 | disposition home or self-care (01) ==
LOC: EDUNIT# 16:37 → ER 16:40
DX: N13.2 Hydronephrosis with renal and ureteral calculous obstruction (principal); U07.1 COVID-19
CPT/HCPCS: 36415; 71046; 74176; 80053; 81000; 83690; 85025; 86141; 87088